=== PATIENT | male | born 1975 | race Caucasian/White ===

== ENCOUNTER 2022-01-10 06:34 | Emergency (ER) | payer OTHER, SELFPAY ==
[2022-01-10 06:35] VITALS: BP 117/103; PULSE 102; RESP 18; TEMP 36.8; O2SAT 99; BMI 31.0
--- NOTE | 2022-01-10 06:41 | EX.ED.GENINJ ---
HPI History of Present Illness Chief Complaint: Laceration Informant: patient Onset/Context/Timing Onset: Today (JPTA) Mechanism/Context: Blunt Injury Location of pain/injuries: - (nose) Quality of Pain: - (sore) Current Severity: Mild Maximum Severity: Mild Worsened by: palpation Relieved by: leaving alone Associated Symptoms Associated Symptoms: Negative for Parasthesias, Weakness, Loss of function or Loss of consciousness Narrative Narrative: Patient was at the gym working out this morning, he was doing LAT pull downs, he let the bar go and the cable that it was attached to came up and cut him in the edge of the nose as it was going past it. He sustained a laceration. He denies any major blunt force injury, just caught the end of his nose and tore a laceration in it. Denies any other injury. Tetanus Immunization: >10 years [facility] Medical History (Updated 01/10/22 @ 07:[address] Mihir Springer MD) Umbilical hernia Medical History no medical history no medical history Home Medications cephalexin 500 mg capsule 500 mg PO TID 5 days #15 CAPSULES 01/10/22 [Rx Last Taken Unknown] testosterone enanthate 100 mg/0.5 mL subcutaneous auto-injector 100 mg subcut QWEEK 01/10/22 [History Last Taken Unknown] Allergy/AdvReac Type Severity Reaction Status Date / Time No Known Allergies Allergy Verified 01/10/22 07:29 Surgical History (Updated 01/10/22 @ 06:41 by Alma Abel) History of arthroscopic knee surgery History of back surgery Surgical History no surgical history no surgical history Social History Smoking Status: Never smoker ROS ROS ED Constitutional Constitutional ED: Denies chills or fever(s) Eyes Eyes: Denies blurry vision or change in vision ENT ENT ED: Reports as per HPI and nasal trauma; Denies ear pain or rhinorrhea Gastrointestinal Gastrointestinal: Denies nausea or vomiting Musculoskeletal Musculoskeletal: Denies back pain or neck pain Integumentary Reports laceration; Denies abscess Neurologic Neurologic: Denies headache(s), paresthesias or weakness EXAM Physical Exam Const Vital Signs: 01/10/22 06:35 Temperature 98.2 F Temperature Source Temporal Pulse Rate 102 H Respiratory Rate 18 Blood Pressure 117/103 H Blood Pressure Mean 107 Pulse Ox 99 Oxygen Delivery Method Room Air Positive well nourished and well developed General Appearance ED: well developed and NAD HEENT HEENT Narrative: Laceration to the tip of the nose going into the dorsum of the wall of the right nostril. Minor bleeding. Full-thickness 2.5 cm, including the mucosal surface since it is a flap that involves a small piece of the cartilage. No tissue loss. No septal hematoma/perforation/involvement. No nasal bone tenderness no other areas of facial tenderness. No epistaxis that seems like it is coming from further back. Eyes PERRL and EOMs intact bilaterally Neck full ROM General: Negative for tenderness Neuro oriented x3, CN's II-XII intact bilaterally, no focal motor deficits, no sensory deficits noted and gait normal Psych mental status grossly normal and thought process normal Skin no rashes or lesions noted Skin Narrative: Laceration to the tip of the nose without tissue loss see above PROC Procedures Lacerations nose / R nostril: Length: 2.5 cm Depth: Sub Q Shape: Flap Prep: Sterile Conditions and Chlorhexadine Laceration repair: Lidocaine (1%, 1.5cc) and Local Number of Sutures/Jasmyn: 7 Suture Information: Vicryl (5-0, #1), Ethilon (6-0, #6) and Simple MDM MDM MDM Narrative Medical decision making narrative: Laceration was repaired see the procedure note. There is 1 mucosal Vicryl, and the rest of the repair was done on the outside all the way to the margin of the nostril. Since it is at the apex, this is keeping all of the tissues together and I do not think they need more internal or mucosal sutures. I advised him to smear some bacitracin on the outside and the inside in the morning and at night before bed, and since there is cartilage involved I am placing him on 5 days of cephalexin just to prophylax against infection. I am having him follow-up with ENT just to make sure in addition to suture removal that everything heals appropriately for good cosmetic effect. Discharge Plan Triage Chief Complaint: Laceration ED Provider: Mihir Springer Dx/Rx/DC Orders Clinical Impression: Laceration of nose, [id number] (DTP) vaccination Instructions: ED Laceration: All Closures Prescriptions: New cephalexin [cephalexin] 500 mg capsule 500 mg PO TID 5 Days Qty: 15 0RF No Action testosterone enanthate 100 mg/0.5 mL Auto-Injector 100 mg SUBCUT QWEEK Referrals: Casey Rao MD [Med Staff - Active Staff] - 5 Days for suture removal Disposition Disposition: Home, Self Care
[2022-01-10] MEDS: Diphth,Pertuss(Acell),Tet Vac 0.5 ML Vial IM (06:46)
== END 2022-01-10 08:03 | disposition home or self-care (01) ==
LOC: ED 07:43
PROVIDERS: Emergency Provider Emergency Medicine; Visit Provider Emergency Medicine
DX: S01.21XA Laceration without foreign body of nose, initial encounter (principal); W26.8XXA Contact with other sharp object(s), not elsewhere classified, initial encounter; Y92.39 Other specified sports and athletic area as the place of occurrence of the external cause; Z23 Encounter for immunization
CPT/HCPCS: 12011; 90715; 99283